=== PATIENT | female | born 1985 | race Caucasian/White ===

== ENCOUNTER 2017-04-18 08:03 | Day surgery (SDC) | payer BC ==
[~2017-04-18 08:03] MED LIST: RINGERS SOLUTION,LACTATED 1,000 ML IV PRN
--- OUTSIDE RECORDS SUMMARY | 2017-04-18 08:07 | XMS REPORT | Continuity of Care Document ---
:1985 Author Organization [facility] ([facility]) Address [address] [place] [address] Phone [phone] Care Team Providers Name Role Phone Provider, No-Primary Care Primary Care Provider Unavailable Source Comments This disclosure is being made pursuant to the Care Everywhere program, applicable federal and state laws, and may not contain all informaitonavailable regarding this patient.[facility] ([facility]) Active Allergies and Adverse Reactions Allergen Noted Date Severity Reactions Comments Doxycycline Hyclate 10/15/2016 Rash Doxycycline Monohydrate 10/15/2016 Rash Oxycodone 10/15/2016 Nausea & Vomiting Tetracycline 03/09/2015 Nausea & Vomiting Current Medications Prescription Sig. Disp. Refills Start Date End Date Status multivitamin Take 1 Tab by Active with minerals 28-0.8 mouth daily. mg per tablet loratadine-pseudoephed Take 1 tablet by Active rine 5-120 mg per mouth 2 times tablet (12 hour) daily. acetaminophen 325 mg Take 2 tablets 120 tablet 2 02/21/2017 Active tablet (650 mg total) by mouth every 4 hours as needed. docusate 100 mg Take 1 capsule 120 capsule 2 02/21/2017 Active capsule (100 mg total) by mouth 2 times daily as needed for Constipation. HYDROmorphone 2 mg Take 1 tablet (2 20 tablet 0 02/21/2017 Active tablet mg total) by mouth every 6 hours as needed for pain. ibuprofen 600 mg Take 1 tablet 120 tablet 2 02/21/2017 Active tablet (600 mg total) by mouth every 6 hours as needed. 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 PONV (postoperative nausea and vomiting) 03/30/2016 12/14/2016 Leiomyoma 03/22/2016 04/24/2016 Encounter for assisted reproductive fertility cycle 10/19/2015 12/13/2016 Female infertility 08/31/2015 12/14/2016 Overview: Formatting of this note may be different from the original. FROZEN CYCLE EPISODE IVF Cycle # 3 IOWArranty? No This is a 30 y.o. year old female desiring transfer of cryopreserved embryos. complications: None Frozen embryos are from embryo donor Outcomes of prior fresh IVF cycles: UG DESIGNER Outcomes of prior frozen transfer: None Any difficulty with prior embryo transfer/ uterine sounding? No, Graves Special considerations: No Further testing needed? No TSH was 1.65 on 08/31/15 Progesterone level in previous cycle adequate? Yes Planned hormone use for endometrium preparation: Estrace - oral - standard dose and Progesterone in oil - standard 50 mg PLAN FOR EMBRYO DISPOSITION Total number of cryopreserved embryos 5 5 pronuclear stage embryos Recommendations: Thaw __5_ embryo(s) at the 2 PN___ stage. Transfer a maximum of __1_ embryos on _ xx__ day 5 of culture. Refreeze blasts IF available. CYCLE OUTCOME Preop Ultrasound Date: ___05/18/16 (schedule baseline digital marketing assistant ultrasound 5-7 days prior to blastocyst embryo transfer; 3-5 days prior to day 3 ET) Stripe thickness: ____6.5mm____ Cyst?____No ; (if cyst >10 mm order progesterone level=___N/A___) Other/Problems: Embryo Transfer Transfer of 1 embryos; x easy; Difficult Additional comments: Excellent blastocyst___ Other Outcome Test scheduled for (date) _06/04__ at (time & place) _[facility]__ [schedule 12 days after day 3 ET (may vary 11-15 days after ET)] [schedule 10 days after Blastocyst ET (may vary 9-13 days after ET)] Preferred method of test result notification: ___ PIL; _X__ cell; [phone] test: XXX positive; AN/KN QBhCG=_415___; Progesterone=__22.5___ (do not order if on vaginal progesterone ) (if positive, repeat QBhCG in 48-96 hr; if inappropriate rise, repeat again in 48-96 hr; if level decreases, follow weekly until non- level) Cycle Review: This cycle, including ultrasounds and blood results, were reviewed and managed by a specialist in Reproductive Endocrinology. 11/07/2015 IVF Fresh Cycle #: 2 Flowsheet [id number] Queta Kulkarniron Dual Trigger Protocol [address] [facility] [id number] Age: 30 y.o.: Weight: Filed Vitals: 11/07/15 1315 Weight: 66.3 kg (146 lb 2.6 oz) : IOWArranty: No Antral Folicle #: 14: Metformin: No: TSH was 1.65 on 08/31/15 Infertility Factors: unexplained; STD Testing: _X__ negative Outcomes of prior fresh IVF cycles: 1. Not Outcomes of prior frozen transfer: None Counsyl Screening? _xxx___ No Control Pill: Necon (for < 200 lbs) Last BCP (date): _12/20/15__ (baseline U/S scheduled within one week of last BCP) Allergies: is allergic to tetracycline. Lab: _[facility]__ ; Pharmacy: _[facility]__ ;([facility] patients preferred times for labs:_1300__ ; U/S: _1300__ ) Preferred Patient Contact #: _[phone]__ . Menopur Vial=75 international units/vial (#vials ___ total) Follistim cartridges: ___ 600 ___ 300; total=___ international units (Initiate Antagon the AM after lead follicle is 12-13 mm; On day Antagon initiated, either increase total dose of gonadotropins by 75 IU/day - OR - initiate Estrace 2 mg BID and continue until test.) Treatment Day 1 2 3 4 5 6 7 8 9 10 11 12 13 14 15 Date: 12/23 13 14 15 16 17 18 19 20 21 22 23 24 25 26 FSH (Follistim) (IU) 150 150 150 75 75 75 150 150 150 HMG (Menopur) (dose in vials) 1 1 1 1 1 2 Antagon 250 mcg SQ (before 9:00 a.m No Yes (am Yes (am) Yes (am) Yes (am) No Estrace 2 mg PO BID HCG only 10,000/5,000 10k HCG 1500 units IM + Lupron 2 mg SQ trigger (40 units) Lupron only 2 mg (40 units) LH + P4 (the AM after trigger injection/s) LH > 15 OR P4 > 3 MD reviewer HD HD chs/EM GR/EM RN initials AN AN KT/JH KT/DO Patient notified cell [facility] Clinic Clinic Meds/Misc. E2 (Baseline Tx day-4, then MD discretion) 12/20 E2= <5 153 - Total # > 10 / Total # X 3/ X 8/13 F O L L I C L E S U/S R (mm) 13 11x2 10x2 9 8 20 17 15x2 14x3 13 Total # > 10 / Total # /14 X 6/16 U/S L (mm) 12 10x2 9x2 8 7 19 16 14x2 13 12 10 Endo stripe mm 8.3 9.0 Luteal support: Progesterone in Oil 50 mg IM or Other OHSS handout: provided/reviewed in IVF OR;___N/A hCG: date __01/01/16____ /time ____; Retrieval date _01/03/16 /time:829 /report time: ; RTL report time: Test scheduled for (date) _01/18/16_ at (time & place) [facility] (schedule on day 16; retrieval=day 1; can vary day 15- 19_ Preferred method of test result notification: _X__ cell; [phone], okay to leave message "PIL"=Patient Information Line For Dual Trigger or Lupron Trigger only: Progesterone in Oil 50 mg IM beginning on day of egg retrieval. Continue until 8 weeks gestation. Estrace 2 mg. BID starting on evening of egg retrieval. Continue until 8 weeks gestation. Testing: Check E2 and P4 on Embryo Transfer day If a Blast ET, recheck levels 1) on test day; then 2) weekly through 6 weeks gestation. If a Day-3 ET, recheck levels 1) in one week; 2) on test day; then 3) weekly through 6 weeks gestation. Results Management: E2: IF E2 is ?200, remain on Estrace 2 mg BID through 8 weeks of gestation and check weekly. IF E2 is <200, increase Estrace to 2 mg TID. DO NOT need to repeat any further E2 levels. P4: IF P4 is ?15 and current dose of progesterone is 50 mg IM daily, then check level weekly through 6 weeks of gestation. Progesterone will continue through 8 weeks of gestation. IF P4 is <15 and already at 50 mg Progesterone in Oil, then increase Progesterone in Oil to 75 mg or add endometrin 100 mg BID vaginally and NO need to recheck any further levels. Estrogen and Progesterone Supplementation will always continue until 8 weeks gestation. Evaluation Date: 08/31/2015; Uterine Sounding: x Done; Not done Speculum used: olive Evans Passed easily: Yes; x No: Notes: anterior, easy Cycle Plans Insemination plan: ICSI Inseminate all oocytes: Yes PGS/PGD being used? No DUBOIS/RENE: No Donor Sperm: No Embryo Culture: Day 5 Cryopreservation of embryos: Yes Stimulation Retrieval & Transfer Transfer of embryos; easy; Difficult Additional comments: ___ Other Special considerations: Yes: try to push trigger injection to day 11 or later. Had issues with pain and nausea when waking up from anesthesia, so please ask STAGE TECHNICIAN to premedicate prior to leavingthe procedure area. 01/03 - saw submucosal fibroid vs polyp in the mid/upper uterine cavity during USGOR. 0.6cm. Will discuss at team meeting today (EM/BVV) Outcome test: ___ negative; ___ positive; QBhCG=; Progesterone=; Estradiol=. (NA if on Estrace) (if positive, repeat QBhCG in 48-96 hr; if inappropriate rise, repeat again in 48-96 hr; if level decreases, follow weekly until non- level) Cycle Review: This cycle, including ultrasounds and blood results, were reviewed and managed by a specialist in Reproductive Endocrinology. 09/04/2015 IVF Cycle #: 1 Flow Sheet [id number] Quetagloria Hammonds Standard Stimulation Protocol [address] [facility] [id number] Age: 30 y.o.: Weight: Filed Vitals: 08/31/15 0931 Weight: 66.1 kg (145 lb 11.6 oz) : IOWArranty: No Antral Folicle #: 14: Metformin: No; Results for QUETA HAMMONDS ( ) Ref. Range 08/31/2015 10:52 08/31/2015 12:55 TSH, Reflex Latest Range: 0.27-4.20 IU/mL 1.65 Infertility Factors: unexplained ; Outcomes of prior fresh IVF cycles: none Outcomes of prior frozen transfer: None STD Testing: _X__ Negative Counsyl Screening? _xxx___ No Control Pill: Necon (for < 200 lbs) Allergies: is allergic to tetracycline. Lab: _[facility]__ ; Pharmacy:[facility]. ; ([facility] patients preferred times for labs:_929__ ;U/S: _929__ ) Preferred Patient Contact #: _[phone]__ . Leuprolide Dose: 0.5 mg - 0.25 mg (< 30 antral follicles, < 200 pounds) Leuprolide starting date: 09/28 (baseline U/S scheduled prior to starting leuprolide); Last BCP (date)=_10/01 ; LMP=__10/04/15 Menopur Vial=75 international units/vial (#vials _14_ total); Follistim cartridges: _3__ 600 ___ 300; total=_1800_ international units (If Tx day 6 E2=>250, order U/S on Tx day 8; If < 250 order E2 only Tx day 8 and U/S Tx day 10) Treatment Day 1 2 3 4 5 6 7 8 9 10 11 12 13 14 15 Date: 10/08 Leuprolide (dose in units) 5 5 5 5 5 5 5 5 5 FSH (Follistim) (IU) 225 225 225 150 150 150 150 150 150 HMG (Menopur) (dose in vials) 1 1 1 1 1 1 hCG 10,000 units IM 10K GUILLERMO JONES reviewer BVV [facility] EHD EM/EHD RN initials do [facility] AN Patient notified pil [facility] clinic Meds/Misc. Estradiol (initial level after menses/by Tx D1) 10/05=32 X 237 X 883 Total # > 10 / Total # 07/27 10/28 F O L L I C L E S U/S R (mm) 15 14x3 13x2 12 11x2 7 18 17 16x2 15x4 14 13x2 12 Total # > 10 / Total # 07/27 10/02 U/S L (mm) 16 14x3 13x3 12x2 10 19 17x3 16x2 15x4 14 Endometrial Stripe (mm) 8.7 8.2 Luteal support: Progesterone in Oil 50 mg IM or Other ___ Supplemental hCG? _x__ No; ___ Yes (if < 7 follicles > 10 mm on hCG day): 2,500 units on (date) ___ and ( date) ___ Estrace 2 mg PO BID: _x__ No; ___ Yes; Already on Estrace (started on day Antagon initiated) ___ Yes (if > 38 yr old or < 7 follicles > 10 mm on hCG day); To begin 9 days after oocyte retrieval. OHSS handout: ___ provided/reviewed in IVF OR;___N/A hCG date 10/17/15/time 2030; Retrieval date 10/19/15 time:0830/ report time:0800 ; RTL report time:0830 Test scheduled for (date) 11/02/15 at [facility] @ ~0930 (schedule on day 16; retrieval=day 1; can vary day 15-19) Preferred method of test result notification: _x__ PIL "PIL"=Patient Information Line Evaluation Date: 08/31/15; Uterine Sounding: Depth: 7.5 cm; Curve: anterior . Position: Anterior xx Passed easily: Yes; xx Cycle Plans Insemination plan: Standard Inseminate all oocytes: Yes DUBOIS/RENE: No Donor Sperm: No Embryo Culture: Day 5 Cryopreservation of embryos: Yes Stimulation Retrieval & Transfer 10/19 USGOR eggs less mature than expected given follicle sizes, 26 retrieved with 16 to inseminate Transfer of 2 embryos; x easy; Difficult Additional comments: _6 cell- 1.0, 7 cell 1.0__ Other Special considerations: No--small myoma impinges on lower uterine cavity ( 4mm ) Outcome test: negative QBhCG=<2; Progesterone=23.4; Estradiol=12 . (NA if on Estrace) Cycle Review: This cycle, including ultrasounds and estradiol levels, were reviewed and managed by a specialist in Reproductive Endocrinology. Preliminary required bloods: Female: HIV=Neg HepBsAG=Neg Hep C Ab=Neg Sypilis IGG=Neg Rubella=Immune Varicella=Childhood Hx Blood Type=B Pos. Partner: HIV=Neg HepBsAG=Neg Hep C Ab=Neg Sypilis IGG=Neg Information Summary signed: (date): Most Recent Encounters Date Type Specialty Providers Description 04/04/2017 Office Visit Gynecology Ivan Agudelo Chief Comp: Patient L, DO Reported Reason For Visit 03/06/2017 Office Visit Gynecology Nalini Sanchez Chief Comp: Patient MD Serenity Reported Reason For Visit 03/05/2017 Telephone Gynecology Nalini Sanchez Chief Comp: Consult MD Serenity With Local Provider 02/26/2017 Telephone Gynecology Juan Luo Chief Comp: Jairo Hope MD 02/22/2017 Telephone Gynecology Juan Luo Chief Comp: Brant Hope MD from Incision 02/21/2017 Pharmacy Visit 02/17/2017 Hospital Encounter Women's Health Subj: Upcoming Appt Reminder 02/17/2017 - Hospital Encounter General Care Valderrama, Shaniqua San, Dx: 02/21/2017 Inpatient - Adult MD hydronephrosis during [place], Elba Villasenor MD antepartum, not Nalini Sanchez applicable or MD Serenity unspecified fetus (Primary Dx) 02/17/2017 Anesthesia Event General Care Jacinto Pena MD Inpatient - Adult 02/13/2017 Office Visit Maternal Clinic, [facility] Subj: Upcoming Appt Medicine Return Reminder 02/12/2017 Telephone Maternal Delbert Chief Comp: Jensen Huang MD Ask-a-nurse 02/10/2017 Telephone General Care Nica Jhaveri Inpatient - Adult S, RN 02/06/2017 Office Visit Maternal LindseyNayely myles Dx: renal Medicine MD Jt anomaly, not Clinic, [facility] applicable or Return unspecified fetus (Primary Dx) 01/30/2017 Office Visit Maternal Clinic, [facility] Subj: Upcoming Appt Medicine Return Reminder 01/25/2017 Telephone Maternal Delbert Chief Comp: Jensen Huang MD Scheduling 01/23/2017 Office Visit Maternal Clinic, [facility] Chief Comp: Patient Medicine Return Reported Reason For Visit 01/16/2017 Office Visit Maternal Clinic, [facility] Chief Comp: Patient Medicine Return Reported Reason For Visit Immunizations Name Dates Previously Given Next Due Influenza 09/09/2014 Tdap 11/15/2016 Social History Tobacco Use Types Packs/Day Years Used Date Former Smoker Quit: 11/11/2002 Smokeless Tobacco: Never Used Tobacco Cessation:Counseling Given: Yes Comments: Alcohol Use Drinks/Week oz/Week Comments No 2 Glasses of wine Last Filed Vital Signs Vital Sign Reading Time Taken Blood Pressure 126/74 02/21/2017 10:20 AM CDT Pulse 88 02/21/2017 10:20 AM CDT Temperature 36.4 C (97.5 F) 02/21/2017 10:20 AM CDT Respiratory Rate 18 02/21/2017 10:20 AM CDT Height 1.727 m (5' 8") 02/17/2017 7:46 PM CDT Weight 78.019 kg (172 lb) 02/17/2017 7:46 PM CDT Body Mass Index 26.16 02/17/2017 7:46 PM CDT Oxygen Saturation 100% 02/21/2017 10:20 AM CDT Plan of Care Date Type Specialty Providers Description 12/12/2017 Appointment OBG Reproductive Chief Comp: Patient Reported Reason For Visit 12/12/2018 Appointment OB Reproductive Chief Comp: Patient Reported Reason For Visit 12/12/2019 Appointment [facility] Chief Comp: Patient Reported Reason For Visit Health Maintenance Due Date Last Done Comments Hepatitis B Vaccine (1 of 3 - Primary Series) 1985 Lipid Disorder Screening 2003 MMR Vaccine 2003 Cervical Cancer Screening 2015 Influenza Vaccine: Seasonal (Season Ended) 2017 09/09/2014 Td Vaccine 11/15/2026 11/15/2016 Tdap Vaccine Completed 11/15/2016 Procedures from Last 3 Months Procedure Name Priority Date/Time Associated Diagnosis Comments ABSTRACTED BY Routine 02/21/2017 1:22 hydronephrosis Results for this BILLING STAFF - NW PM CDT during , procedure are in antepartum, not the results applicable or section. unspecified fetus Results from Last 3 Months OTHER PROCEDURE (02/21/2017 1:22 PM) Narrative Nalini Sanchez MD 02/21/20171:22 PM Forcep Assisted Vaginal Delivery Anesthesia: Epidural Sales Coach: Dr. Sanchez Delivery comments: The patient was pushing in dorsal lithotomy position with good maternal effort. SVE complete/complete/+2 station. position was noted to be BILL, slight posterior rotation/asynclitism with adequate pelvis for assisted vaginal delivery.The bladder had recently been emptied with catheter and the vertex was not palpable above the pubic symphysis. The posterior blade of the Andrés-Luikhart forceps was placed without difficulty followed by the anterior blade.Appropriate placement was confirmed by the attending physician prior to locking.The pt was then asked to resume pushing with the next contraction. Subsequent forceps assisted delivery over the course of approximately 30 minutes of pushing with contractions. Correct placement of the forceps was frequently re-confirmed throughout pushing. Progressive descent of the head was noted with each contraction/pull. The forceps were removed as the head was . The head was delivered without difficulty, no nuchal cord. The remainder of the infant was delivered easily without shoulder dystocia.The infant was noted to be vigorous and initial cord clamping was delayed. Cord segment and cord blood obtained. The placenta delivered spontaneously. Examination of the perineum with findings consistent with a 2nd degree perineal laceration. This was repaired in the usual fashion. A right sulcal laceration was noted and reapproximated with running sutures of 2-0 Vicryl which was also used to reinforce the transverse perineal muscle and the skin over the perineal laceration. The cervix was inspected with no evidence of laceration. Infant Wt: 3795 gms Apgars: 1': 8/ 5': 9 Placenta and Cord: Normal on inspection, intact with 3 vessels Mechanism: spontaneous Description: complete, 3 vessel cord EBL: [address] was present for the entire procedure. Operative Vaginal Delivery Note Date: 02/17/2017 Name:Queta Hammonds Pre-delivery diagnosis: 1. IUP at 41w2d 2. Possible coarctation, hydronephrosis 3. EFW 9 lbs by Delvin's Post-delivery diagnosis: Same as preoperative with delivery of 3795 grams with Apgars of 8 and 9. Cord gases of pH 7.18 (arterial) and pH 7.29 (venous). Procedure: Forceps vaginal delivery Episiotomy or Incision: none Indications for instrumental delivery: Persistent category 2 heart tracing Operative vaginal instrument used: Andrés - Luikhart forceps Obstetrical Delivery Note Admission Date: 02/17/2017 /Para: EDC: Estimated Date of Delivery: 02/10/17 Gestational Age: 41w2d Delivery Type: Other Forceps: Indicated, Low Presentation: Vertex Position: Right Occiput Anterior Delivery Date: 02/19/20176:44 AM Delivering Clinician: NALINI SANCHEZ Delivery Providers: ANTONETTE HARP; NICA STREET Anesthesia Method: IV Narcotic, Combined Spinal/Epidural Tubal Ligation: No Complications: None Labor Onset Date: 02/18/20174:00 PM Rupture of Membranes (ROM) Date: 02/19/2017 12:45 AM Rupture Type: SROM Fluid Color: Clear Induction: Cervidil, Misoprostol, Oxytocin Augmentation: None Labor & Delivery Complications: None EstimatedBlood Loss (ml): 400 Episiotomy: None Type of Lacerations: Perineal (Midline 2nd degree), right sulcal Antibiotics Prior to Delivery: None Episiotomy/Laceration Repair: 2nd degree midline, right sulcal Gender: Male Placenta Date/Time: 02/19/20176:54 AM Placenta Removal: Spontaneous Placenta Appearance: Intact Vessels: 3 Vessels Umbilical Cord: No abnormalities Gases Sent: Yes Weight (kg): 3.795 1 minute: 8 5 minutes: 9 Living Status: Yes Labor Lengths: First Stage Labor Duration: 11 hours 40 minutes Second Stage Labor Duration: 3 hours 4 minutes Third Stage Labor Duration: 0 hours 10 minutes disposition: NICU Teaching Statement Dr. Sanchez was present for the entire procedure. Teaching Statement: I was physically present for and participated in the above listed procedure.I have reviewed, edited, and agree with the documentation above. FAVD for Cat 2 FHR (severe variable decelerations remote from spontaneous delivery).Slow, but steady descent with each pull of the forceps.Anterior shoulder delivered without difficulty, vigorous .Inspection of head after delivery noted slight asymmetry of forceps mcnally (near right eye, left ear), no significant bruising or other concerns. Nalini Sanchez MD [employer] Clinical Professor Department of Obstetrics & Gynecology [facility] CBC (COMPLETE BLOOD COUNT) (02/20/2017 7:16 AM)Only the most recent of2 resultswithin the time period is included. Component Value Range WBC Count 23.8(H) 3.7-10.5 K/MM3 RBC Count 3.55(L) 4.00-5.20 M/MM3 Hemoglobin 11.6(L) 11.9-15.5 g/dL Hematocrit 34(L) 35-47 % MCV (Mean Corpuscular Volume) 96 82-99 FL MCH (Mean Corpuscular Hemoglobin) 33 25-35 PG MCHC (Mean Corpuscular Hemoglobin Concentration) 34 32-36 % Platelet Count 229 150-400 K/MM3 MPV (Mean Platelet Volume) 10.4 9.4-12.3 FL RBC Dist Width-STD 44.2 36.4-46.3 FL RBC Distrib Width 12.7 9.0-14.5 % Nucleated RBC 0 /100 WBC Specimen Whole Blood ABORH TYPE - CORD BLOOD (02/19/2017 6:50 AM) Component Value Range Sample Received Cord Sample ReceivedComment:Cord blood not tested due to blood bank protocol Specimen Blood, umbilical cord VENOUS BLOOD GAS - CORD BLOOD ([facility]) (02/19/2017 6:50 AM) Component Value Range pH, Venous, Cord Blood 7.29 pCO2, Venous, Core Blood 40 torr pO2, Venous, Cord Blood 30 torr Base Excess, Venous, Cord Blood -7.3 mEq/L Bicarbonate, Calculated, Venous, Cord Blood 19 mEq/L Total CO2, Venous, Cord Blood 20 mEq/L Temperature, Venous, Cord Blood 37.0 Degrees C Specimen Blood, umbilical cord ARTERIAL BLOOD GAS -CORD BLOOD ([facility]) (02/19/2017 6:50 AM) Component Value Range pH, Arterial, Cord Blood 7.18 pCO2, Arterial, Cord Blood 46 torr pO2, Arterial, Cord Blood 37 torr Base Excess, Arterial, Cord Blood -11 mEq/L Bicarbonate, Calculated, Arterial, Cord Blood 17 mEq/L Total CO2, Arterial, Cord Blood 19 mEq/L Temperature, Arterial, Cord Blood 37.0 Degrees C Specimen Blood, umbilical cord CSE BLOCK (02/18/2017 6:05 PM) Palmer Rangel MD 02/18/20176:05 PM CSE Procedure Spinal Indication: Labor Analgesia Epidural Indication: Labor Analgesia Position: Sitting Preparation: Chlorhexidine and Sterile Drape/Gloves Skin infiltrated with local anesthetic US used to identify nerve/real time visualization of needle placement & local anesthetic injection & US image captured: No Epidural Needle: Tuohy Gauge: 17 G Length: 9 cm Level: L4/5 Loss of resistance: Air and Saline Needle depth at skin: 5 cm Catheter at skin depth: 11 cm CSF aspirated: No Test Dose: Negative Resistance on injection: Normal Blood aspirated: No Pain on injection: No Paresthesia on injection: No Unintended dural puncture: No Spinal Needle: Portillo Gauge: 27 G Length: 5 inch Level: Through epidural needle Clear CSF aspirated and spinal drug injected Blood aspirated: No Pain on injection: No Paresthesia on injection: No Attempts: 1 Start time: 02/18/2017 5:40 PM End time: 02/18/2017 5:55 PM Events: no other event Success: Complete Performed by Anesthesiologist: SRIKANTH CHANG Fellow/Resident: PALMER MORRISSEY TYPE AND SCREEN (BLOOD TYPE(ABORH) AND RBC ANTIBODY SCREEN) (02/17/2017 8:24 PM ) Component Value Range ABORH B Positive Specimen Expiration Date 2017-02-20 Antibody Screen Negative Specimen Blood
[2017-04-18 08:26] LABS: Hematocrit 41.8 % (37.0-47.0); Hemoglobin 14.6 gm/dL (12.5-16.0); Mean Cell Volume 90.1 fl (78-100); Mean Corpuscular Hemoglobin 31.5 pg (27-31); Mean Corpuscular Hgb Conc 34.9 g/dl (32-36); Mean Platelet Volume 9.3 fl (6.0-9.5); Neutrophil # 2.4 K/mm3 (1.3-6.0); Neutrophil % 39.4 % (42-75.0); Platelet Count 315 K/mm3 (150-450); Red Blood Count 4.64 M/mm3 (4.2-5.4); White Blood Count 6.2 K/mm3 (4.0-10.5)
[2017-04-18 08:37] LABS: Albumin * 4.4 gm/dl (3.4-5.0); Anion Gap 12.3 mmol/L (6.8-13.8); BUN/Creatinine Ratio 16.3 (9.0-21.6); Bilirubin, Total 0.7 mg/dL (0.0-1.1); Ca. Corrected For Albumin 8.9 mg/dL (8.4-10.2); Calcium * 9.5 mg/dL (7.9-10.9); Carbon Dioxide 26.6 mmol/L (24-32.6); Potassium 3.9 mmol/L (3.4-4.6); Total Protein 7.9 gm/dL (6.2-8.2)
[2017-04-18] MEDS ORDERED: RINGERS SOLUTION,LACTATED 1,000 ML IV ONE ×2 (08:45→11:00)
--- NOTE | 2017-04-18 11:16 | OR ---
Operative Report - Dictated Report Narrative: Date of Procedure: 04/18/2017 PROCEDURE: 1. Dilation and curettage ANESTHESIA: General, IV sedation. PREOPERATIVE DIAGNOSIS: 1. Retained product of conception. 2. Eight weeks status post a forceps assisted vaginal delivery POSTOPERATIVE DIAGNOSES: 1. Retained product of conception (placental membrane?) 2. Eight weeks status post a forceps assisted vaginal delivery SURGEON: Maryann Fischer MD REHABILITATION INSPECTOR: Deborah FINDINGS: 1. Small yellow whitish membrane like material protruded at cervical os. 2. Moderate amount of membrane like material removed from endometrium cavity. 3. Uterus sounded to 8 cm. SPECIMEN: 1. Endometrial curettings. DRAINS: None. URINE OUTPUT: not measured BLOOD LOSS: 5 ml INTRAOPARATIVE IV FLUIDS: 600 ml COMPLICATIONS: None. DESCRIPTION OF PROCEDURE: The patient consented prior to the operation and taken to the operating room. She was placed on the operating table supine. SCDs were placed on her lower extremities. General anesthesia was induced. She was repositioned in the dorsal lithotomy position. Exam under anesthesia revealed a normal size uterus with no palpable adnexal mass. The abdomen and the vagina were prepped with Betadine. She was draped in the usual sterile fashion. A time-out procedure was conducted to confirm the correct patient for the correct procedure. After time-out, a bivalve speculum was placed into the vagina. The cervix was visualized. The vagina and the cervix were prepped with Betadine one more time. The anterior cervix was grasped with a single- tooth tenaculum. Membrane-like material at the cervical os was removed with a clamp. The uterus was sounded to 8 cm. The cervix appeared dilated to 1 cm and there was no need for additional dilation. The bivalve speculum was removed. A weighted speculum was placed. A Janina retractor was used to retract the anterior vaginal wall. A sharp curette was inserted into the uterine cavity. The cavity was scraped gently in all directions. Moderate amount of endometrial curettings were obtained. The sharp curette was removed. There was no bleeding from the cervix. The single-tooth tenaculum was removed. The tenaculum site was hemostastic. The Janina retractor and the weighted speculum were removed. Patient tolerated the procedure well. All counts were correct. The patient was taken to the recovery room in stable condition. Maryann Fischer MD
[2017-04-18] MEDS ORDERED: IBUPROFEN 800 MG TABLET PO PRN (11:21)
[2017-04-18] MEDS ORDERED: RINGERS SOLUTION,LACTATED 1,000 ML IV PRN (11:21)
[2017-04-18 12:26] VITALS: BP 108/61
== END 2017-04-18 08:04 | disposition home or self-care (01) ==
LOC: AMB 08:03
PROVIDERS: ATTEND Obstetrics & Gynecology
PROC: 10D17ZZ Extraction of Products of Conception, Retained, Via Natural or Artificial Opening (ICD-10-PCS; principal; 2017-04-18 10:30)
DX: O73.1 Retained portions of placenta and membranes, without hemorrhage (principal); B37.89 Other sites of candidiasis; F41.9 Anxiety disorder, unspecified; F31.9 Bipolar disorder, unspecified; Z87.891 Personal history of nicotine dependence; Z68.21 Body mass index [BMI] 21.0-21.9, adult

== ENCOUNTER 2018-01-12 16:59 | Emergency (ER) | payer BC, OTHER ==
[2018-01-12 17:05] VITALS: BP 133/78
--- NOTE | 2018-01-12 17:22 | ERNOTE ---
ENT HPI Date of Service: 01/12/18 Presenting Symptoms: other - Ear pain Time Seen by Provider: 01/12/18 17:21 Source: patient, RN notes reviewed Exam Limitations: no limitations - Immun/Allergies/Home Medications Immunizations: IMMUNIZATION HX Immunizations Up to Date Yes Allergies/Adverse Reactions: Allergies Allergy/AdvReac Type Severity Reaction Status Date / Time doxycycline AdvReac Mild RASH Verified 01/12/18 17:06 oxycodone HCl AdvReac Mild Vomiting Verified 01/12/18 17:06 [From OxyContin] Penicillins AdvReac DOESNT WORK Verified 01/12/18 17:06 Home Medications: HOME MEDICATIONS Amox Tr/Potassium Clavulanate [Augmentin 875-125 Tablet] 875 mg PO Q12H #20 tab 01/12/18 [Last Taken Unknown] - History of Present Illness Narrative: Queta is a 32 year old female who presents to the ED for pain and pressure in her left ear that started today. She has had URI symptoms for a week. She has been taking Claritin D and Nyquil. She thought she was getting better until today. ENT Location: Present: ear (L) Prearrival Treatment: Present: over the counter meds Prior Treament: Denies: recently seen Review of Systems - Review of Systems Constitutional: Present: fever, chills, malaise. Absent: recent illness EYE: Absent: eye pain, vision changes ENT: Present: ear pain, nose congestion, nasal drainage, sore throat. Absent: ear discharge Respiratory: Present: cough. Absent: shortness of breath, wheezing Cardiology: Absent: chest pain, palpitations Gastrointestinal/Abdominal: Absent: nausea, vomiting Genitourinary: Present: no symptoms reported Musculoskeletal: Absent: muscle pain, joint pain Skin: Absent: rash, lesions Neurological: Present: headache. Absent: dizziness/light-headedness Endocrine: Present: no symptoms reported Hematologic/Lymphatic: Absent: easy bruising, easy bleeding Psych: Present: no symptoms reported - Patient's Past Medical History Patient History - Medical: Anxiety, Headache, Other Patient History - Cardiac/Respiratory: No pertinent hx Patient History - Cancer: No Hx of Cancer Patient History - Surgical Procedures: D & C, T & A, Other, ENT Patient History - Other: None LMP (females 10-50): 3 weeks LMP (Calendar): 12/25/17 - Family History Mother Family History - Medical: No pertinent hx Family History - Cardiac/Respiratory: No pertinent hx Family History - Cancer: No pertinent family hx - Social History Living Situations: home Abuse History: No History of abuse Psych History: Hx of Anxiety Smoking Status: Never smoker Alcohol Use: occasionally Drug Use: none - Immunizations Immunizations Up to Date: Yes Physical Exam - Physical Exam General Appearance: Present: wd/wn, alert, no apparent distress Head Exam: Present: tenderness - mild, bilateral maxillary sinuses. Absent: swelling Eye Exam: Normal inspection: bilateral Ears, Nose, Throat: Present: abnormal TM (L) - clear fluid behind TM, nasal congestion, sinus pain/drainage, pharyngeal erythema. Absent: abnormal TM (R) Neck: Present: normal inspection, nontender, supple Respiratory: Present: no respiratory distress, normal breath sounds, no accessory muscle use, lungs clear Cardiovascular/Chest: Present: regular rate, rhythm, no murmur Extremity Exam: Present: normal inspection, normal range of motion Neurological Exam: Present: alert, oriented, normal mood/affect, no motor/ sensory deficits Skin Exam: Present: normal color, warm/dry ED Progress - Vital Signs Patient's Vital Signs:: I have reviewed the patient's vital signs. Vital Signs: Vital Signs 01/12/18 17:02 Temperature 36.7 C Pulse Rate 73 Respiratory 17 Rate Blood Pressure 133/78 O2 Sat by Pulse 98 Oximetry - Progress/Reassessment Chief Complaint: Earache Progress:: Unchanged Departure Clinical Impression: Maxillary sinusitis, acute Qualifiers: Recurrence: non-recurrent Qualified Code(s): J01.00 - Acute maxillary sinusitis , unspecified Eustachian tube dysfunction Qualifiers: Laterality: left Qualified Code(s): H69.82 - Other specified disorders of Eustachian tube, left ear - Departure Disposition: Home self-care Condition: Good Instructions: Sinusitis, Adult, [id number] Additional Instructions: Stop Claritin D but can try Afrin spray for 2 or 3 days Tylenol and/or ibuprofen for pain/fever continue nasal saline Referrals: Kayleen Rodríguez MD [Primary Care Provider] - Prescriptions: Amox Tr/Potassium Clavulanate [Augmentin 875-125 Tablet] 875 mg PO Q12H #20 tab
[2018-01-12] MEDS ORDERED: AMOX TR/POTASSIUM CLAVULANATE 875 MG TABLET PO ONE (17:35)
[2018-01-12] MEDS ORDERED: AMOX TR/POTASSIUM CLAVULANATE 875 MG TABLET ONE (17:37)
== END 2018-01-12 17:39 | disposition home or self-care (01) ==
LOC: ER 16:59
DX: H69.82 Other specified disorders of Eustachian tube, left ear; J01.00 Acute maxillary sinusitis, unspecified